=== PATIENT | female | born 1955 | race American Indian/Alaskan Native ===

== ENCOUNTER 2019-03-15 23:11 | Emergency (ER) | payer OTHER ==
[2019-03-15] MEDS ORDERED: ASPIRIN 325 MG TAB PO ONE (23:38)
[2019-03-16 00:04] LABS: Basophils % (Auto) 0.4 % (0.0-1.8); Eosinophils # (Auto) 0.1 K/mm3 (0.0-0.4); Eosinophils % (Auto) 0.8 % (0.0-4.3); Hematocrit 36.5 % (30.3-42.9); Lymphocytes # (Auto) 0.6 K/mm3 (1.2-5.4); Lymphocytes % (Auto) 7.4 % (13.4-35.0); Mean Corpuscular HGB Conc 33 % (30-34); Mean Corpuscular Volume 87 fl (79-97); Monocytes % (Auto) 11.9 % (0.0-7.3); Platelet Count 263 K/mm3 (140-440); Red Blood Count 4.18 M/mm3 (3.65-5.03); Red Cell Distribution Width 13.2 % (13.2-15.2)
[2019-03-16] MEDS ORDERED: IBUPROFEN 800 MG TAB PO ONE (00:26)
--- NOTE | 2019-03-16 00:27 | Emergency Department Report ---
Minor Respiratory - HPI Chief Complaint: Upper Respiratory Infection Stated Complaint: PAIN IN CHEST Duration: 1 Day Severity: mild Minor Respiratory: Yes Cough, Yes Fever, No Rhinorrhea, No Sore Throat, No Able to Tolerate Fluids, No Ear Pain, No Sick Contacts, No Hemoptysis, No Chest Pain, No Shortness of Breath Other History: Is a 63-year-old female with a history of diabetes or presents to ED complaining of worsening cough that began last night. Patient states after she got home from work she began intermittent coughing. Patient states the cough is intermittent and causing her some chest discomfort only with coughing. ED Review of Systems ROS: Stated complaint: PAIN IN CHEST Other details as noted in HPI Comment: All other systems reviewed and negative ED Past Medical Hx - Past Medical History Previous Medical History?: Yes Hx Diabetes: Yes - Surgical History Past Surgical History?: No - Social History Smoking Status: Never Smoker Substance Use Type: None - Medications Home Medications: Home Medications Medication Instructions Recorded Confirmed Last Taken Type Albuterol INH(or & Nicu Only) 2 puff IH QID PRN #8.5 gram 03/16/19 Unknown Rx [ProAir HFA Inhaler] Benzonatate [Tessalon Perles] 100 mg PO Q8HR #30 capsule 03/16/19 Unknown Rx Ibuprofen [Motrin] 800 mg PO Q8HR #30 tablet 03/16/19 Unknown Rx Minor Respiratory Exam - Exam General: Vital signs noted. No distress. Alert and acting appropriately. HEENT: Yes Moist Mucous Membranes, No Pharyngeal Erythema, No Pharyngeal Exudates, No Rhinorrhea, No Conjuctival Injection, No Frontal Tenderness, No Maxillary Tenderness Ear: Neither TM Bulge, Neither TM Erythema, Neither EAC Pain, Neither EAC Discharge Neck: Yes Supple, No Adenopathy Lungs: Yes Good Air Exchange, No Wheezes, No Ronchi, No Stridor, No Cough, No Labored Respirations, No Retractions, No Use of Accessory Muscles, No Other Abnormal Lung Sounds Heart: Yes Regular, No Murmur Abdomen: Yes Normal Bowel Sounds, No Tenderness, No Peritoneal Signs Skin: No Rash, No Edema Neurologic: Alert and oriented, no deficits. Musculoskeletal: Unremarkable. ED Course Vital Signs 03/15/19 03/15/19 23:19 23:39 Temperature 100.9 F H Pulse Rate 103 H 96 H Respiratory 20 Rate Blood Pressure 154/81 O2 Sat by Pulse 96 Oximetry ED Medical Decision Making - Lab Data Result diagrams: 03/15/19 23:41 03/15/19 23:41 Laboratory Last Values WBC 8.5 K/mm3 (4.5-11.0) 03/15/19 23:41 RBC 4.18 M/mm3 (3.65-5.03) 03/15/19 23:41 Hgb 12.0 gm/dl (10.1-14.3) 03/15/19 23:41 Hct 36.5 % (30.3-42.9) 03/15/19 23:41 MCV 87 fl (79-97) 03/15/19 23:41 MCH 29 pg (28-32) 03/15/19 23:41 MCHC 33 % (30-34) 03/15/19 23:41 RDW 13.2 % (13.2-15.2) 03/15/19 23:41 Plt Count 263 K/mm3 (140-440) 03/15/19 23:41 Lymph % (Auto) 7.4 % (13.4-35.0) L 03/15/19 23:41 [place] % (Auto) 11.9 % (0.0-7.3) H 03/15/19 23:41 Eos % (Auto) 0.8 % (0.0-4.3) 03/15/19 23:41 Baso % (Auto) 0.4 % (0.0-1.8) 03/15/19 23:41 Lymph # 0.6 K/mm3 (1.2-5.4) L 03/15/19 23:41 [place] # 1.0 K/mm3 (0.0-0.8) H 03/15/19 23:41 Eos # 0.1 K/mm3 (0.0-0.4) 03/15/19 23:41 Baso # 0.0 K/mm3 (0.0-0.1) 03/15/19 23:41 Seg Neutrophils % 79.5 % (40.0-70.0) H 03/15/19 23:41 Seg Neutrophils # 6.7 K/mm3 (1.8-7.7) 03/15/19 23:41 Sodium 140 mmol/L (137-145) 03/15/19 23:41 Potassium 3.3 mmol/L (3.6-5.0) L 03/15/19 23:41 Chloride 103.1 mmol/L (98-107) 03/15/19 23:41 Carbon Dioxide 24 mmol/L (22-30) 03/15/19 23:41 Anion Gap 16 mmol/L 03/15/19 23:41 BUN 13 mg/dL (7-17) 03/15/19 23:41 Creatinine 0.9 mg/dL (0.7-1.2) 03/15/19 23:41 Estimated GFR > 60 ml/min 03/15/19 23:41 BUN/Creatinine Ratio 14 % 03/15/19 23:41 Glucose 176 mg/dL (65-100) H 03/15/19 23:41 Calcium 9.3 mg/dL (8.4-10.2) 03/15/19 23:41 Troponin T < 0.010 ng/mL (0.00-0.029) 03/15/19 23:41 - Radiology Data Radiology results: report reviewed, image reviewed CHEST 1 VIEW INDICATION: Chest Pain. COMPARISON: None FINDINGS: Support devices: None. Heart: Within normal limits. Lungs/Pleura: No acute air space or interstitial disease. Additional findings: None. IMPRESSION: 1. No acute findings. Signer Name: Paresh Whittaker MD Signed: 03/16/2019 2:15 AM Workstation Name: [id number] Transcribed By: NALLELY Dictated By: Paresh Whittaker MD Electronically Authenticated By: Paresh Whittaker MD Signed Date/Time: 03/16/195 - Medical Decision Making 63-year-old male presents with acute bronchitis Fever resolved during the ED stay. Chest x-ray was obtained. Chest x-ray shows, see report above Discussed with mother symptomatic relief with [id number] medications. Discussed continue Tylenol and Motrin as needed for fever and pain. Discussed increase fluids and diet intake. Discussed rest much needed. Discussed daily vitamin C for immune booster. Discussed follow-up with primary care physician in 3-5 days. Patient verbally states she understands and will comply the following instructions and follow-up Vital signs stable. Patient is in no acute distress Critical care attestation.: If time is entered above; I have spent that time in minutes in the direct care of this critically ill patient, excluding procedure time. ED Disposition Clinical Impression: Acute bronchitis, Fever, Upper respiratory infection, viral Disposition: DC-01 TO HOME OR SELFCARE Is pt being admited?: No Does the pt Need Aspirin: No Condition: Stable Instructions: Upper Respiratory Infection (ED), Acute Bronchitis (ED), Viral Syndrome (ED) Additional Instructions: Make sure to follow up with the primary care physician as discussed. Take all your medications as you've been prescribed. If you have any worsening symptoms or develop new symptoms please return to ED i mmediately. Prescriptions: Ibuprofen [Motrin] 800 mg PO Q8HR #30 tablet Albuterol INH(or & Nicu Only) [ProAir HFA Inhaler] 2 puff IH QID PRN #8.5 gram PRN Reason: Shortness Of Breath Benzonatate [Tessalon Perles] 100 mg PO Q8HR #30 capsule Referrals: [facility] [Provider Group] - 3-5 Days [facility] [Outside] - 3-5 Days [facility] [Outside] - 3-5 Days Forms: Work/School Release Form(ED) Time of Disposition: 02:23
[2019-03-16 00:29] LABS: BUN/Creatinine Ratio 14; Blood Urea Nitrogen 13 mg/dL (7-17); Calcium 9.3 mg/dL (8.4-10.2); Hemolysis Index 4
[2019-03-16] MEDS ORDERED: ACETAMINOPEN W/CODEINE 120-12MG ORAL LIQD 5 ML PO ONE (00:37)
[2019-03-16 02:03] VITALS: BP 120/70
--- NOTE | 2019-03-16 02:20 | XRay Report ---
CHEST 1 VIEW INDICATION: Chest Pain. COMPARISON: None FINDINGS: Support devices: None. Heart: Within normal limits. Lungs/Pleura: No acute air space or interstitial disease. Additional findings: None. IMPRESSION: 1. No acute findings. Signer Name: Paresh Whittaker MD Signed: 03/16/2019 2:15 AM Workstation Name: [id number]
== END 2019-03-16 02:36 | disposition home or self-care (01) ==
LOC: EDSEX → ED 23:11
DX: J20.9 Acute bronchitis, unspecified (principal); R50.9 Fever, unspecified; J06.9 Acute upper respiratory infection, unspecified; E11.9 Type 2 diabetes mellitus without complications; Z79.899 Other long term (current) drug therapy
CPT/HCPCS: 36415; 71045; 80048; 84484; 85025; 93005; 93010

== ENCOUNTER 2021-05-28 14:19 | Emergency (ER) | payer SELFPAY ==
[2021-05-28 17:20] VITALS: BP 160/88
--- NOTE | 2021-05-28 22:47 | Emergency Department Report ---
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 States that there was no immediate blood appreciated from the needlestick but when she began repetitively expressing the wound she was able to get a little dot of blood from the puncture site. States her tetanus shot is up-to-date reports no significant past medical history. Patient's chart was also reviewed there was no indication for any infectious processes/communicable diseases. Location: head Radiation: non-radiation Quality: dull Consistency: constant Improves with: none Worsens with: none Associated Symptoms: denies other symptoms Treatments Prior to Arrival: none - Related Data Previous Rx's Medication Instructions Recorded Last Taken Type Albuterol Mdi (or & Nicu Only) 2 puff IH QID PRN #8.5 gram 03/16/19 Unknown Rx [ProAir HFA Inhaler] Benzonatate [Tessalon Perles] 100 mg PO Q8HR #30 capsule 03/16/19 Unknown Rx Ibuprofen [Motrin] 800 mg PO Q8HR #30 tablet 03/16/19 Unknown Rx Emtricitabine/Tenofovir (Tdf) 1 each PO DAILY #28 05/28/21 Unknown Rx [Truvada 167 mg-250 mg Tablet] Raltegravir Potassium [Isentress] 400 mg PO BID #56 05/28/21 Unknown Rx Allergies Allergy/AdvReac Type Severity Reaction Status Date / Time No Known Allergies Allergy Verified 03/16/19 00:42 ED Review of Systems ROS: Stated complaint: STUCK WITH A NEEDLE Other details as noted in HPI ED Past Medical Hx - Past Medical History Hx Diabetes: Yes - Social History Smoking Status: Never Smoker Substance Use Type: None - Medications Home Medications: Home Medications Medication Instructions Recorded Confirmed Last Taken Type Albuterol Mdi (or & Nicu Only) 2 puff IH QID PRN #8.5 gram 03/16/19 Unknown Rx [ProAir HFA Inhaler] Benzonatate [Tessalon Perles] 100 mg PO Q8HR #30 capsule 03/16/19 Unknown Rx Ibuprofen [Motrin] 800 mg PO Q8HR #30 tablet 03/16/19 Unknown Rx Emtricitabine/Tenofovir (Tdf) 1 each PO DAILY #28 05/28/21 Unknown Rx [Truvada 167 mg-250 mg Tablet] Raltegravir Potassium [Isentress] 400 mg PO BID #56 05/28/21 Unknown Rx ED Physical Exam - General Limitations: No Limitations General appearance: alert, in no apparent distress - Head Head exam: Present: atraumatic, normocephalic, normal inspection - Eye Eye exam: Present: normal appearance, PERRL, EOMI Pupils: Present: normal accommodation - ENT ENT exam: Present: normal exam, mucous membranes moist - Neck Neck exam: Present: normal inspection, full ROM - Respiratory Respiratory exam: Present: normal lung sounds bilaterally. Absent: respiratory distress, wheezes, rales, rhonchi, chest wall tenderness, accessory muscle use - Cardiovascular Cardiovascular Exam: Present: regular rate, normal rhythm, normal heart sounds. Absent: systolic murmur, diastolic murmur, rubs, gallop - GI/Abdominal GI/Abdominal exam: Present: soft, normal bowel sounds. Absent: tenderness, guarding, hyperactive bowel sounds, hypoactive bowel sounds, organomegaly - Extremities Exam Extremities exam: Present: normal inspection, normal capillary refill - Back Exam Back exam: Present: normal inspection. Absent: CVA tenderness (R), CVA tenderness (L) - Neurological Exam Neurological exam: Present: alert, oriented X3, CN II-XII intact, normal gait - Psychiatric Psychiatric exam: Present: normal affect, normal mood. Absent: anxious, flat affect, manic, homicidal ideation, suicidal ideation - Skin Skin exam: Present: warm, dry, intact, normal color. Absent: rash, cyanosis, diaphoretic, erythema, petechiae, pallor, abrasion ED Course Vital Signs 05/28/21 17:16 Temperature 98.2 F Pulse Rate 51 L Respiratory 18 Rate Blood Pressure 160/88 [Right] ED Medical Decision Making - Medical Decision Making 65-year-old female status post needlestick from diabetic needle earlier today with no history of any communicable disease or infectious processes. Also advised the patient that based on the CDC PEP guidelines and clinician cons ultation similar PEP last there was a 1 and 333 risk for HIV transmission if it was present in the house. Nonetheless she wanted to move forward with a repeat so Truvada as well thyroid medication was added for the t 28-day course. Critical care attestation.: If time is entered above; I have spent that time in minutes in the direct care of this critically ill patient, excluding procedure time. ED Disposition Clinical Impression: Needle stick injury of finger of left hand Disposition: HOME / SELF CARE / HOMELESS Is pt being admited?: No Does the pt Need Aspirin: No Condition: Stable Instructions: Needlestick and Sharps Injury Prescriptions: Raltegravir Potassium [Isentress] 400 mg PO BID #56 Emtricitabine/Tenofovir (Tdf) [Truvada 167 mg-250 mg Tablet] 1 each PO DAILY #28 Referrals: PRIMARY CARE, [Primary Care Provider] - 2-3 Days
== END 2021-05-28 23:00 | disposition home or self-care (01) ==
LOC: ED 14:19
DX: S61.432A Puncture wound without foreign body of left hand, initial encounter (principal); E11.9 Type 2 diabetes mellitus without complications; Z79.899 Other long term (current) drug therapy; W46.0XXA Contact with hypodermic needle, initial encounter; Y93.89 Activity, other specified; Y92.89 Other specified places as the place of occurrence of the external cause; Y99.8 Other external cause status
CPT/HCPCS: 99282